=== PATIENT | female | born 1990 | race Two or more races ===

== ENCOUNTER 2019-07-02 22:24 | Emergency (ER) | payer SELFPAY ==
[~2019-07-02] VITALS: Ht 170.2 cm; Wt 59.4 kg
[2019-07-02 22:30] VITALS: BP 111/87
[2019-07-02] MEDS ORDERED: LIDOCAINE 1%-EPI 1:100,000 20 ML VIAL ONE (22:50)
[2019-07-02] MEDS ORDERED: LIDOCAINE 2% 20 ML MDV TP ONE (23:00)
== END 2019-07-02 23:29 | disposition home or self-care (01) ==
LOC: ER 22:24
DX: S51.811A Laceration without foreign body of right forearm, initial encounter (principal); W45.8XXA Other foreign body or object entering through skin, initial encounter; Y93.39 Activity, other involving climbing, rappelling and jumping off; Y92.89 Other specified places as the place of occurrence of the external cause; Y99.8 Other external cause status
CPT/HCPCS: 12002; 99283; A6403 ×2; J3490